=== PATIENT | female | born 1965 | race Caucasian/White ===

== ENCOUNTER 2017-11-30 06:00 | Day surgery (SDC) | payer OTHER ==
[~2017-11-30 06:00] MED LIST: GAS-X125 M1 PO; KETO10TA2 PO
== END 2017-11-30 10:40 | disposition home or self-care (01) ==
LOC: AMB-ENDOS 06:00
DX: C20 Malignant neoplasm of rectum (principal); D12.3 Benign neoplasm of transverse colon; K57.30 Diverticulosis of large intestine without perforation or abscess without bleeding; K64.1 Second degree hemorrhoids; R00.0 Tachycardia, unspecified; D64.89 Other specified anemias

== ENCOUNTER 2020-05-14 06:30 | Day surgery (SDC) | payer OTHER | END 2020-05-14 11:00 | disposition home or self-care (01) | LOC: AMB-ENDOS 06:30 → ADM 15:15 → AMB-ENDOS 15:15 | PROVIDERS: ATTEND Colon & Rectal Surgery | DX: K62.89 Other specified diseases of anus and rectum (principal); K64.0 First degree hemorrhoids ==